=== PATIENT | female | born 1990 | race Caucasian/White ===

== ENCOUNTER 2018-05-21 22:20 | Observation (INO) | payer OTHER ==
[~2018-05-21] VITALS: Ht 165.1 cm; Wt 117.1 kg
[2018-05-21 23:19] VITALS: BP 115/62
[2018-05-22 00:03] LABS: BILIRUBIN,URINE NEGATIVE (NEGATIVE); GLUCOSE, URINE (UA) NEGATIVE (NEGATIVE); KETONES,URINE NEGATIVE (NEGATIVE); LEUKOCYTE ESTERASE ,URINE SMALL (NEGATIVE); NITRATE,URINE NEGATIVE (NEGATIVE); OCCULT BLOOD,URINE NEGATIVE (NEGATIVE); PROTEIN,URINE NEGATIVE (NEGATIVE)
[2018-05-22 00:04] LABS: APPEARANCE,URINE HAZY (CLEAR)
[2018-05-22 00:09] LABS: BACTERIA,URINE Rare /HPF (None Seen); RBC,URINE 0-2 /HPF (0-2)
[2018-05-22 00:10] LABS: CALCIUM OXALATE CRYSTALS,UR Few /LPF (None Seen); SQUAMOUS EPITHELIAL CELL,UR Few /LPF (None Seen)
== END 2018-05-22 01:45 | disposition home or self-care (01) ==
LOC: 4S 22:20
PROVIDERS: ADMIT Specialist; ATTEND Specialist
DX: O46.92 Antepartum hemorrhage, unspecified, second trimester (principal); O26.892 Other specified pregnancy related conditions, second trimester; R21 Rash and other nonspecific skin eruption; Z3A.23 23 weeks gestation of pregnancy
CPT/HCPCS: 59025; 81001; G0378 ×2